=== PATIENT | female | born 1940 ===

== ENCOUNTER 2016-04-21 12:44 | Emergency (ER) | payer MEDICARE, OTHER ==
[~2016-04-21] VITALS: Ht 162.6 cm; Wt 77.1 kg
[2016-04-21 15:42] VITALS: BP 151/98
[2016-04-21] MEDS ORDERED: KETOROLAC TROMETH 60MG/2ML VIAL IM ONE (15:45)
[2016-04-21] MEDS ORDERED: cloNIDine HCL 0.1 MG TAB PO ONE (15:45)
== END 2016-04-21 16:36 | disposition home or self-care (01) ==
LOC: ER 12:44
DX: S50.11XA Contusion of right forearm, initial encounter (principal); I10 Essential (primary) hypertension; W01.0XXA Fall on same level from slipping, tripping and stumbling without subsequent striking against object, initial encounter; Y93.89 Activity, other specified; Y99.8 Other external cause status; Y92.099 Unspecified place in other non-institutional residence as the place of occurrence of the external cause
CPT/HCPCS: 73090; 73110; 73562; 96372; 99284; J1885